=== PATIENT | male | born 1950 | race Caucasian/White ===

== ENCOUNTER → 2023-11-07 06:58 | Outpatient (REF) | payer MEDICARE, OTHER, SELFPAY | LOC: RCS 06:58 | PROVIDERS: ATTENDING PHYSICIAN Nuclear Medicine Nuclear Cardiology; FAMILY PHYSICIAN Family Medicine | DX: I48.0 Paroxysmal atrial fibrillation (principal); R07.2 Precordial pain | CPT/HCPCS: 78452; 93017; A9500 ==